=== PATIENT | male | born 1970 | race Two or more races ===

== ENCOUNTER 2017-03-22 14:13 | Inpatient (IN) | payer OTHER ==
[2017-03-22 17:56] VITALS: BMI 30.1
--- NOTE | 2017-03-22 19:00 | HP ---
CIWA Score - CIWA Score Nausea/Vomitin-No Nausea/No Vomiting Muscle Tremors: 4-Moderate,w/Arms Extend Anxiety: 3 Agitation: 4-Moderately Restless Paroxysmal Sweats: 1-Minimal Palms Moist Orientation: 2-Disoriented Date<2 days Tacttile Disturbances: 0-None Auditory Disturbances: 0-None Visual Disturbances: 0-None Headache: 0-None Present CIWA-Ar Total Score: 14 Admission ROS S - HPI Chief Complaint: withdrawal sx Allergies/Adverse Reactions: Allergies Allergy/AdvReac Type Severity Reaction Status Date / Time No Known Allergies Allergy Verified 03/22/17 19:00 History of Present Illness: 46 years old male with long history of alcohol marijuana nicotine dependence has asthma gerd and schizophrenia is admitted to detox Exam Limitations: No Limitations - Ebola screening Have you traveled outside of the country in the last 21 days: No Have you had contact with anyone from an Ebola affected area: No Have you been sick,other than usual withdrawal symptoms: No Do you have a fever: No - Review of Systems Constitutional: Changes in sleep, Weight Stable EENT: reports: No Symptoms Reported Respiratory: reports: SOB with Exertion, Productive cough (brownish) Cardiac: reports: No Symptoms Reported GI: reports: Nausea, Poor Fluid Intake, Indigestion, Abdominal cramping : reports: No Symptoms Reported Musculoskeletal: reports: No Symptoms Reported Integumentary: reports: No Symptoms Reported Neuro: reports: Tremors Endocrine: reports: No Symptoms Reported Hematology: reports: No Symptoms Reported Psychiatric: reports: Judgement Intact, Anxious, Depressed Other Systems: Reviewed and Negative Patient History - Patient Medical History Hx Anemia: No Hx Asthma: Yes Hx Chronic Obstructive Pulmonary Disease (COPD): No Hx Cancer: No Hx Cardiac Disorders: No Hx Congestive Heart Failure: No Hx Hypertension: No Hx Hypercholesterolemia: No Hx Pacemaker: No HX Cerebrovascular Accident: No Hx Seizures: No Hx Dementia: No Hx Diabetes: No Hx Gastrointestinal Disorders: Yes Hx Liver Disease: No Hx Genitourinary Disorders: No Hx Sexually Transmitted Disorders: No Hx Renal Disease (ESRD): No Hx Thyroid Disease: No Hx Human Immunodeficiency Virus (HIV): No Hx Hepatitis C: No Hx Depression: No Hx Suicide Attempt: Yes (jump from roof 17 years old) Hx Bipolar Disorder: No Hx Schizophrenia: Yes - Patient Surgical History Past Surgical History: No - PPD History Previous Implant?: Yes Documented Results: Negative w/o proof Implanted On Prior [facility] Admission?: No PPD to be Administered?: Yes - Smoking Cessation Smoking history: Current every day smoker Have you smoked in the past 12 months: Yes Aproximately how many cigarettes per day: 10 Cigars Per Day: 0 Hx Chewing Tobacco Use: No Initiated information on smoking cessation: Yes 'Breaking Loose' booklet given: 03/22/17 - Substance & Tx. History Hx Alcohol Use: Yes Hx Substance Use: Yes Substance Use Type: Alcohol, Marijuana Hx Substance Use Treatment: No Family Disease History - Family Disease History Family Disease History: Respiratory: Brother Admission Physical Exam BHS - Vital Signs Vital Signs: Vital Signs - 24 hr 03/22/17 17:53 Temperature 97.8 F Pulse Rate 75 Respiratory 18 Rate Blood Pressure 140/83 - Physical General Appearance: Yes: Appropriately Dressed, Mild Distress, Alcohol on Breath , Tremorous, Irritable, Sweating, Anxious HEENTM: Yes: Hearing grossly Normal, Normal ENT Inspection, Normocephalic, Normal Voice Respiratory: Yes: Chest Non-Tender, No Respiratory Distress, No Accessory Muscle Use, Wheezing Neck: Yes: Supple, Trachea in good position Breast: Yes: Breasts Symetrical Cardiology: Yes: Regular Rhythm, Regular Rate, S1, S2 Abdominal: Yes: Non Tender, Soft Genitourinary: Yes: Within Normal Limits Back: Yes: Normal Inspection Musculoskeletal: Yes: full range of Motion, Gait Steady Extremities: Yes: Normal Range of Motion, Non-Tender, Tremors Neurological: Yes: Alert, Motor Strength 5/5, Normal Response, Depressed Affect Integumentary: Yes: Warm Lymphatic: Yes: Within Normal Limits - Diagnostic (1) Alcohol dependence with uncomplicated withdrawal Current Visit: Yes Status: Acute (2) Asthma Current Visit: Yes Status: Chronic Qualifiers: Asthma severity: mild Asthma persistence: intermittent Asthma complication type: with status asthmaticus Qualified Code(s): J45.22 - Mild intermittent asthma with status asthmaticus (3) Nicotine dependence Current Visit: Yes Status: Acute Qualifiers: Nicotine product type: cigarettes Substance use status: in withdrawal Qualified Code(s): F17.213 - Nicotine dependence, cigarettes, with withdrawal (4) GERD (gastroesophageal reflux disease) Current Visit: Yes Status: Chronic Qualifiers: Esophagitis presence: without esophagitis Qualified Code(s): K21.9 - Gastro -esophageal reflux disease without esophagitis (5) Schizophrenia Current Visit: Yes Status: Suspected Qualifiers: Schizophrenia type: paranoid schizophrenia Qualified Code(s): F20.0 - Paranoid schizophrenia (6) PCP dependence Current Visit: Yes Status: Chronic (7) Cannabis dependence, uncomplicated Current Visit: Yes Status: Chronic Cleared for Admission [facility] - Detox or Rehab [facility] Level of Care: Observation Bed Detox Regimen/Protocol: Not Applicable Claeared for Rehab Admission: Yes [facility] Breath Alcohol Content Breath Alcohol Content: 0 Urine Drug Screen - Control Is Test Valid: Yes - Results Drug Screen Negative: No Urine Drug Screen Results: THC-Marijuana, PCP-Phencyclidine
[2017-03-22] MEDS ORDERED: LOPERAMIDE HCL 2 MG CAPSULE PO PRN (19:02)
[2017-03-22] MEDS ORDERED: NICOTINE POLACRILEX 2 MG GUM BUC PRN (19:02)
[2017-03-22] MEDS ORDERED: P-EPHED 60MG/TRIPROLIDI 2.5MG TABLET PO PRN (19:02)
[2017-03-22] MEDS ORDERED: guaiFENesin/D-METHORPHAN HB 10 ML UNIT-DOSE CUPS PO PRN (19:02)
[2017-03-22] MEDS ORDERED: MENTHOL/PHENOL 1 EACH UD MM PRN (19:02)
[2017-03-22] MEDS ORDERED: MAGNESIUM HYDROX 2400MG/30ML ORAL SUSPENSION 30 ML CUP PO PRN (19:02)
[2017-03-22] MEDS ORDERED: ACETAMINOPHEN 325 MG TABLET (FP) PO PRN (19:02)
[2017-03-22] MEDS ORDERED: chlordiazePOXIDE HCL 25 MG CAPSULE PO PRN (19:02)
[2017-03-22] MEDS ORDERED: MAG HYDROX/AL HYDROX/SIMETH 30 ML UNIT-DOSE CUP PO PRN (19:02)
[2017-03-22] MEDS ORDERED: MAGNESIUM CITRATE 300 ML BOTTLE PO PRN (19:02)
[2017-03-22] MEDS ORDERED: ALBUTEROL SO4 18 GM HFA INHALER IH PRN (19:23)
[2017-03-22] MEDS ORDERED: ALBUTEROL SO4 2.5/IPRATROPIUM 0.5 INH SOL 3 ML VIAL.NEB. NEB PRN (19:23)
[2017-03-22] MEDS: RANITIDINE HCL 150 MG TABLET (FP) PO SCH ×2 (20:47→22:26)
[2017-03-22] MEDS: chlordiazePOXIDE HCL 25 MG CAPSULE PO SCH (22:26)
[2017-03-22] MEDS: THIAMINE HCL 100 MG TABLET (FP) PO SCH (22:26)
[2017-03-23] MEDS: chlordiazePOXIDE HCL 25 MG CAPSULE PO SCH ×4 (05:10→22:23)
[2017-03-23 10:19] LABS: MCH 29.6 pg (25.7-33.7); MCHC 32.8 g/dl (32.0-35.9); MEAN CELL VOLUME 90.2 fl (80-96); MEAN PLT VOLUME 8.9 fl (7.5-11.1); PLATELET COUNT 195 K/MM3 (134-434); RDW 14.1 % (11.9-15.9); WHITE BLOOD COUNT 7.5 K/mm3 (4.0-10.0)
[2017-03-23] MEDS: RANITIDINE HCL 150 MG TABLET (FP) PO SCH ×2 (10:20→22:23)
[2017-03-23] MEDS: NICOTINE 14 MG/24 HOURS TOPICAL PATCH TD SCH (10:20)
[2017-03-23] MEDS: BENZTROPINE MESYLATE 1 MG TABLET (FP) PO SCH ×2 (10:20→22:23)
[2017-03-23] MEDS: PRENATAL VITAMINS W/ FOLIC ACID TABLET (FP) PO SCH (10:20)
[2017-03-23 11:13] LABS: ALBUMIN 3.2 g/dl (3.4-5.0); ALK PHOS 72 U/L (45-117); ANION GAP 11 (8-16); BILIRUBIN,TOTAL 0.4 mg/dL (0.2-1.0); CALCIUM 8.4 mg/dL (8.5-10.1); CO2 25 mmol/L (21-32); CREATININE 0.8 mg/dL (0.7-1.3); GLUCOSE,RANDOM 77 mg/dL (74-106); SGOT/AST 19 U/L (15-37); SGPT/ALT 30 U/L (12-78); TOT PROT 6.3 g/dl (6.4-8.2)
[2017-03-23 11:28] LABS: HIV 1 & 2 AB NEGATIVE; HIV 1 AGp24 NEGATIVE
--- NOTE | 2017-03-23 11:31 | CONSULT ---
[facility] Psychiatric Consult - Data Date of interview: 03/23/17 Admission source: [facility] Identifying data: This is 46 years old male with histopry of Schizophrenia, hustoiry of psychiatric hospitalizations, iontoxicated with: Alcohol, Nicotine , history of PCP abuse as well Substance Abuse History: - Smoking Cessation. Smoking history: Current every day smoker. Have you smoked in the past 12 months: Yes. Aproximately how many cigarettes per day: 10. Cigars Per Day: 0. Hx Chewing Tobacco Use: No. Initiated information on smoking cessation: Yes. 'Breaking Loose' booklet given : 03/22/17. - Substance & Tx. History. Hx Alcohol Use: Yes. Hx Substance Use : Yes. Substance Use Type: Alcohol, Marijuana. Hx Substance Use Treatment: No Medical History: Asthma, GERD Psychiatric History: Patient reports to carry Paranoid Schizophrenia, reports most recent osychiatric admission on 5 monmths ago at [facility], reports takinmg prior to admission: Prolixin IM 25mg with last injections on 03/22. Trazodone 50mg po qhs. Depakote 1000mg p[o qhs. Cogentin 1mg po bid Physical/Sexual Abuse/Trauma History: Denies Additional Comment: Prolixin IM 25mg with last injections on 03/22. Trazodone 50mg po qhs. Depakote 1000mg p[o qhs. Cogentin 1mg po bid Mental Status Exam - Mental Status Exam Alert and Oriented to: Person Cognitive Function: Fair Patient Appearance: Unkempt Mood: Sad Affect: Constricted Patient Behavior: Cooperative Speech Pattern: Pressured Voice Loudness: Mildly Soft/Quiet Thought Process: Circumstantial Thought Disorder: Being Controlled Hallucinations: Denies Suicidal Ideation: Denies Homicidal Ideation: Denies Insight/Judgement: Fair Sleep: Difficulty falling asleep Appetite: Fair Muscle strength/Tone: Mild Hypotonicity Gait/Station: Shuffling Additional Comments: Prolixin IM 25mg with last injections on 03/22. Trazodone 50mg po qhs. Depakote 1000mg p[o qhs. Cogentin 1mg po bid Psychiatric Findings - Problem List (Hazard 1, 2,3) (1) Alcohol dependence with uncomplicated withdrawal Current Visit: Yes Status: Acute (2) Nicotine dependence Current Visit: Yes Status: Acute Qualifiers: Nicotine product type: cigarettes Substance use status: in withdrawal Qualified Code(s): F17.213 - Nicotine dependence, cigarettes, with withdrawal (3) Cannabis dependence, uncomplicated Current Visit: Yes Status: Chronic (4) PCP dependence Current Visit: Yes Status: Chronic (5) Schizophrenia Current Visit: Yes Status: Suspected Qualifiers: Schizophrenia type: paranoid schizophrenia Qualified Code(s): F20.0 - Paranoid schizophrenia - Initial Treatment Plan Initial Treatment Plan: Prolixin IM 25mg with last injections on 03/22, with 2 weeks injections protocol. Trazodone 50mg po qhs. Depakote 1000mg p[o qhs. Cogentin 1mg po bid
[2017-03-23] MEDS ORDERED: FLU VACCINE QUAD 60 MCG/0.5 ML (MDV 17-18) IM ONE (12:00)
--- NOTE | 2017-03-23 12:37 | EKG ---
Test Reason : Blood Pressure : / mmHG Vent. Rate : 072 BPM Atrial Rate : 072 BPM P-R Int : 162 ms QRS Dur : 088 ms QT Int : 382 ms P-R-T Axes : 036 000 028 degrees QTc Int : 418 ms NORMAL SINUS RHYTHM POSSIBLE ANTERIOR INFARCT , AGE UNDETERMINED ABNORMAL ECG NO PREVIOUS ECGS AVAILABLE Confirmed by ALESHA AIKEN, NICOLASA ([id number]) on 03/23/2017 12:37:29 PM Referred By: Confirmed By:NICOLASA EDUARDO MD
--- NOTE | 2017-03-23 14:42 | PN ---
[facility] CIWA - CIWA Score Nausea/Vomitin-No Nausea/No Vomiting Muscle Tremors: 4-Moderate,w/Arms Extend Anxiety: 3 Agitation: 2 Paroxysmal Sweats: 3 Orientation: 0-Oriented Tacttile Disturbances: 2-Mild Itch/Numbness/Burn Auditory Disturbances: 2-Mild Harshness/Frighten Visual Disturbances: 0-None Headache: 0-None Present CIWA-Ar Total Score: 16 BHS Progress Note (SOAP) Subjective: Tremors, Stomach Cramping, Sweating. Objective: PT. A & O X 3, OBSERVED AMBULATING ON UNIT. NO ACUTE DISTRESS. 03/23/17 14:42 Vital Signs Temperature 96.5 F L 03/23/17 13:21 Pulse Rate 87 03/23/17 13:21 Respiratory Rate 20 03/23/17 13:21 Blood Pressure 114/77 03/23/17 13:21 O2 Sat by Pulse Oximetry (%) Laboratory Tests 03/23/17 03/23/17 03/23/17 04:00 04:00 04:00 WBC 7.5 RBC 4.71 Hgb 13.9 Hct 42.5 MCV 90.2 MCH 29.6 MCHC 32.8 RDW 14.1 Plt Count 195 MPV 8.9 Sodium 142 Potassium 3.9 Chloride 106 Carbon Dioxide 25 Anion Gap 11 BUN 11 Creatinine 0.8 Creat Clearance w eGFR > 60 Random Glucose 77 Calcium 8.4 L Total Bilirubin 0.4 AST 19 ALT 30 Alkaline Phosphatase 72 Total Protein 6.3 L Albumin 3.2 L Valproic Acid RPR Titer Nonreactive HIV 1&2 Antibody Screen HIV P24 Antigen 03/23/17 03/23/17 04:00 07:00 WBC RBC Hgb Hct MCV MCH MCHC RDW Plt Count MPV Sodium Potassium Chloride Carbon Dioxide Anion Gap BUN Creatinine Creat Clearance w eGFR Random Glucose Calcium Total Bilirubin AST ALT Alkaline Phosphatase Total Protein Albumin Valproic Acid < 3.000 L RPR Titer HIV 1&2 Antibody Screen Negative HIV P24 Antigen Negative LABS NOTED. UA RESULTS PENDING. 03/23/17 14:45 Assessment: 03/23/17 14:43 WITHDRAWAL SYMPTOMS. Plan: CONTINUE DETOX.
[2017-03-23] MEDS: THIAMINE HCL 100 MG TABLET (FP) PO SCH (22:22)
[2017-03-23] MEDS: traZODone HCL 50 MG TABLET (FP) PO SCH (22:23)
[2017-03-23] MEDS: DIVALPROEX NA *ER* EXTEND REL 500 MG TABLET.SA (FP) PO SCH (22:23)
[2017-03-24] MEDS: chlordiazePOXIDE HCL 25 MG CAPSULE PO SCH ×3 (05:18→17:23)
[2017-03-24] MEDS: RANITIDINE HCL 150 MG TABLET (FP) PO SCH ×2 (10:25→22:22)
[2017-03-24] MEDS: PRENATAL VITAMINS W/ FOLIC ACID TABLET (FP) PO SCH (10:25)
[2017-03-24] MEDS: BENZTROPINE MESYLATE 1 MG TABLET (FP) PO SCH ×2 (10:25→22:22)
[2017-03-24] MEDS: NICOTINE 14 MG/24 HOURS TOPICAL PATCH TD SCH (10:26)
--- NOTE | 2017-03-24 14:01 | PN ---
[facility] CIWA - CIWA Score Nausea/Vomitin-No Nausea/No Vomiting Muscle Tremors: 3 Anxiety: 4-Mod. Anxious/Guarded Agitation: 3 Paroxysmal Sweats: 3 Orientation: 2-Disoriented Date<2 days Tacttile Disturbances: 2-Mild Itch/Numbness/Burn Auditory Disturbances: 0-None Visual Disturbances: 0-None Headache: 0-None Present CIWA-Ar Total Score: 17 BHS Progress Note (SOAP) Subjective: Stomach cramping, Anxious, Sweating, Tremors. Objective: PT. A & O X 2 (UNCERTAIN ABOUT DAY / DATE). PT. OBSERVED AMBULATING ON UNIT. NO ACUTE DISTRESS. 03/24/17 13:59 Vital Signs Temperature 98.0 F 03/24/17 13:31 Pulse Rate 88 03/24/17 13:31 Respiratory Rate 18 03/24/17 13:31 Blood Pressure 105/72 03/24/17 13:31 O2 Sat by Pulse Oximetry (%) Laboratory Tests 03/23/17 03/23/17 03/23/17 04:00 04:00 04:00 WBC 7.5 RBC 4.71 Hgb 13.9 Hct 42.5 MCV 90.2 MCH 29.6 MCHC 32.8 RDW 14.1 Plt Count 195 MPV 8.9 Sodium 142 Potassium 3.9 Chloride 106 Carbon Dioxide 25 Anion Gap 11 BUN 11 Creatinine 0.8 Creat Clearance w eGFR > 60 Random Glucose 77 Calcium 8.4 L Total Bilirubin 0.4 AST 19 ALT 30 Alkaline Phosphatase 72 Total Protein 6.3 L Albumin 3.2 L Valproic Acid RPR Titer Nonreactive HIV 1&2 Antibody Screen HIV P24 Antigen 03/23/17 03/23/17 04:00 07:00 WBC RBC Hgb Hct MCV MCH MCHC RDW Plt Count MPV Sodium Potassium Chloride Carbon Dioxide Anion Gap BUN Creatinine Creat Clearance w eGFR Random Glucose Calcium Total Bilirubin AST ALT Alkaline Phosphatase Total Protein Albumin Valproic Acid < 3.000 L RPR Titer HIV 1&2 Antibody Screen Negative HIV P24 Antigen Negative LABS NOTED. Assessment: 03/24/17 14:00 WITHDRAWAL SYMPTOMS. Plan: CONTINUE DETOX.
[2017-03-24 17:36] LABS: URINE APPEARANCE SLCLOUDY; URINE BILIRUBIN NEGATIVE (NEGATIVE); URINE BLOOD NEGATIVE (NEGATIVE); URINE COLOR LTYELLOW; URINE GLUCOSE (UA) NEGATIVE (NEGATIVE); URINE KETONE NEGATIVE (NEGATIVE); URINE NITRITE NEGATIVE (NEGATIVE); URINE PROTEIN NEGATIVE (NEGATIVE); URINE UROBILINOGEN NEGATIVE mg/dL (0.2-1.0)
[2017-03-24] MEDS: chlordiazePOXIDE 5 MG CAPSULE PO SCH (22:21)
[2017-03-24] MEDS: THIAMINE HCL 100 MG TABLET (FP) PO SCH (22:22)
[2017-03-24] MEDS: DIVALPROEX NA *ER* EXTEND REL 500 MG TABLET.SA (FP) PO SCH (22:22)
[2017-03-24] MEDS: traZODone HCL 50 MG TABLET (FP) PO SCH (22:22)
[2017-03-25] MEDS: chlordiazePOXIDE 5 MG CAPSULE PO SCH ×3 (05:51→17:35)
[2017-03-25] MEDS: NICOTINE 14 MG/24 HOURS TOPICAL PATCH TD SCH (10:23)
[2017-03-25] MEDS: PRENATAL VITAMINS W/ FOLIC ACID TABLET (FP) PO SCH (10:23)
[2017-03-25] MEDS: BENZTROPINE MESYLATE 1 MG TABLET (FP) PO SCH ×2 (10:23→22:17)
[2017-03-25] MEDS: RANITIDINE HCL 150 MG TABLET (FP) PO SCH ×2 (10:23→22:17)
--- NOTE | 2017-03-25 12:21 | PN ---
BHS Progress Note (SOAP) Subjective: Anxious, Fatigue. Objective: PT. A & O X 2 (UNCERTAIN ABOUT DAY / DATE). NO ACUTE DISTRESS. 03/25/17 12:19 Vital Signs Temperature 96.1 F L 03/25/17 09:27 Pulse Rate 80 03/25/17 09:27 Respiratory Rate 18 03/25/17 09:27 Blood Pressure 117/74 03/25/17 09:27 O2 Sat by Pulse Oximetry (%) Laboratory Tests 03/23/17 03/23/17 03/23/17 04:00 04:00 04:00 WBC 7.5 RBC 4.71 Hgb 13.9 Hct 42.5 MCV 90.2 MCH 29.6 MCHC 32.8 RDW 14.1 Plt Count 195 MPV 8.9 Sodium 142 Potassium 3.9 Chloride 106 Carbon Dioxide 25 Anion Gap 11 BUN 11 Creatinine 0.8 Creat Clearance w eGFR > 60 Random Glucose 77 Calcium 8.4 L Total Bilirubin 0.4 AST 19 ALT 30 Alkaline Phosphatase 72 Total Protein 6.3 L Albumin 3.2 L Urine Color Urine Appearance Urine pH Ur Specific [place] Urine Protein Urine Glucose (UA) Urine Ketones Urine Blood Urine Nitrite Urine Bilirubin Urine Urobilinogen Valproic Acid RPR Titer Nonreactive HIV 1&2 Antibody Screen HIV P24 Antigen 03/23/17 03/23/17 03/24/17 04:00 07:00 17:15 WBC RBC Hgb Hct MCV MCH MCHC RDW Plt Count MPV Sodium Potassium Chloride Carbon Dioxide Anion Gap BUN Creatinine Creat Clearance w eGFR Random Glucose Calcium Total Bilirubin AST ALT Alkaline Phosphatase Total Protein Albumin Urine Color Ltyellow Urine Appearance Slcloudy Urine pH 6.0 Ur Specific [place] 1.009 Urine Protein Negative Urine Glucose (UA) Negative Urine Ketones Negative Urine Blood Negative Urine Nitrite Negative Urine Bilirubin Negative Urine Urobilinogen Negative Valproic Acid < 3.000 L RPR Titer HIV 1&2 Antibody Screen Negative HIV P24 Antigen Negative LABS NOTED. Assessment: 03/25/17 12:20 WITHDRAWAL SYMPTOMS. Plan: CONTINUE DETOX.
[2017-03-25] MEDS: chlordiazePOXIDE HCL 10 MG CAPSULE PO SCH (22:17)
[2017-03-25] MEDS: traZODone HCL 50 MG TABLET (FP) PO SCH (22:17)
[2017-03-25] MEDS: DIVALPROEX NA *ER* EXTEND REL 500 MG TABLET.SA (FP) PO SCH (22:17)
[2017-03-25] MEDS: THIAMINE HCL 100 MG TABLET (FP) PO SCH (22:17)
[2017-03-26] MEDS: chlordiazePOXIDE HCL 10 MG CAPSULE PO SCH (05:13)
[2017-03-26 06:39] VITALS: BP 97/62; PULSE 66; TEMP 96.6
[2017-03-26] MEDS: PRENATAL VITAMINS W/ FOLIC ACID TABLET (FP) PO SCH (08:48)
[2017-03-26] MEDS: RANITIDINE HCL 150 MG TABLET (FP) PO SCH (08:48)
[2017-03-26] MEDS: BENZTROPINE MESYLATE 1 MG TABLET (FP) PO SCH (08:48)
--- NOTE | 2017-03-26 11:43 | DS ---
[facility] Detox Discharge Summary Admission Date: 03/22/17 Discharge Date: 03/26/17 - History Present History: Alcohol Dependence, Cannabis Dependence, Pcp Dependence Pertinent Past History: Asthma GERD - Physical Exam Results Vital Signs: Vital Signs Temperature 96.6 F L 03/26/17 06:39 Pulse Rate 66 03/26/17 06:39 Respiratory Rate 18 03/26/17 06:39 Blood Pressure 97/62 03/26/17 06:39 O2 Sat by Pulse Oximetry (%) Pertinent Admission Physical Exam Findings: Withdrawal symptoms Laboratory Tests 03/23/17 03/23/17 03/23/17 04:00 04:00 04:00 WBC 7.5 RBC 4.71 Hgb 13.9 Hct 42.5 MCV 90.2 MCH 29.6 MCHC 32.8 RDW 14.1 Plt Count 195 MPV 8.9 Sodium 142 Potassium 3.9 Chloride 106 Carbon Dioxide 25 Anion Gap 11 BUN 11 Creatinine 0.8 Creat Clearance w eGFR > 60 Random Glucose 77 Calcium 8.4 L Total Bilirubin 0.4 AST 19 ALT 30 Alkaline Phosphatase 72 Total Protein 6.3 L Albumin 3.2 L Urine Color Urine Appearance Urine pH Ur Specific [facility] Urine Protein Urine Glucose (UA) Urine Ketones Urine Blood Urine Nitrite Urine Bilirubin Urine Urobilinogen Valproic Acid RPR Titer Nonreactive HIV 1&2 Antibody Screen HIV P24 Antigen 03/23/17 03/23/17 03/24/17 04:00 07:00 17:15 WBC RBC Hgb Hct MCV MCH MCHC RDW Plt Count MPV Sodium Potassium Chloride Carbon Dioxide Anion Gap BUN Creatinine Creat Clearance w eGFR Random Glucose Calcium Total Bilirubin AST ALT Alkaline Phosphatase Total Protein Albumin Urine Color Ltyellow Urine Appearance Slcloudy Urine pH 6.0 Ur Specific [facility] 1.009 Urine Protein Negative Urine Glucose (UA) Negative Urine Ketones Negative Urine Blood Negative Urine Nitrite Negative Urine Bilirubin Negative Urine Urobilinogen Negative Valproic Acid < 3.000 L RPR Titer HIV 1&2 Antibody Screen Negative HIV P24 Antigen Negative Labs noted - Treatment Hospital Course: Detox Protocol Followed, Detoxed Safely, Responded well, Discharged Condition Good - Medication Discharge Medications: Ambulatory Orders Fluphenazine Decanoate [Prolixin Decanoate (Long-Acting Injection) -] 25 mg IM ASDIR 03/22/17 Benztropine Mesylate [Cogentin -] 1 mg PO BID #60 tablet 03/23/17 Divalproex Sodium [Depakote ER] 1,000 mg PO HS #30 tab.er.24h 03/23/17 Trazodone HCl [Desyrel -] 50 mg PO HS #30 tablet 03/23/17 Albuterol Sulfate Inhaler - [Ventolin Hfa Inhaler -] 2 inh PO Q4H PRN #1 inhaler 03/25/17 - Diagnosis (1) Alcohol dependence with uncomplicated withdrawal Status: Acute (2) Nicotine dependence Status: Chronic Qualifiers: Nicotine product type: cigarettes Substance use status: in withdrawal Qualified Code(s): F17.213 - Nicotine dependence, cigarettes, with withdrawal (3) Asthma Status: Chronic Qualifiers: Asthma severity: mild Asthma persistence: intermittent Asthma complication type: with status asthmaticus Qualified Code(s): J45.22 - Mild intermittent asthma with status asthmaticus (4) Cannabis dependence, uncomplicated Status: Chronic (5) GERD (gastroesophageal reflux disease) Status: Chronic Qualifiers: Esophagitis presence: without esophagitis Qualified Code(s): K21.9 - Gastro -esophageal reflux disease without esophagitis (6) PCP dependence Status: Chronic (7) Schizophrenia Status: Chronic Qualifiers: Schizophrenia type: paranoid schizophrenia Qualified Code(s): F20.0 - Paranoid schizophrenia - AMA Did Patient Leave Against Medical Advice: No (F/U with PCP in 1-2 weeks)
[2017-03-26 18:20] LABS: URINE LEUK ESTERASE Negative (NEGATIVE)
== END 2017-03-26 08:50 | disposition home or self-care (01) | DRG 897 ==
LOC: YASAS 14:13 → Y3N 19:56
PROVIDERS: ADMIT Internal Medicine; ATTEND Internal Medicine
PROC: HZ2ZZZZ Detoxification Services for Substance Abuse Treatment (ICD-10-PCS; principal; 2017-03-22)
DX: F10.230 Alcohol dependence with withdrawal, uncomplicated (principal); F16.20 Hallucinogen dependence, uncomplicated; F20.0 Paranoid schizophrenia; J45.22 Mild intermittent asthma with status asthmaticus; F12.20 Cannabis dependence, uncomplicated; F17.213 Nicotine dependence, cigarettes, with withdrawal; K21.9 Gastro-esophageal reflux disease without esophagitis; Z91.5 Personal history of self-harm
CPT/HCPCS: 36415; 80053; 80164; 81003; 85027; 86593; 87389; 90688; 93005; 93010; G0008